=== PATIENT | female | born 1955 | race Caucasian/White ===

== ENCOUNTER 2025-05-31 04:43 | Emergency (ER) | payer MEDICARE, SELFPAY ==
[2025-05-31] VITALS (14 sets, daily range): BP systolic 109–142; BP diastolic 68–93; PULSE 50–62; TEMP 36.8; O2SAT 92–96; BMI 29.3
--- NOTE | 2025-05-31 05:17 | ED.GENADUL1 ---
Documented by User: Eliazar De Souza MD 05/31/25 19:45 HPI HPI - General Adult General Chief complaint: Urogenital-Female Stated complaint: ABDOMINAL PAIN Time Seen by Provider: 05/31/25 05:13 Source: patient Mode of arrival: Wheelchair History of Present Illness HPI narrative: abdominal pain for 3 days. Urinary urgency. Pain worse with cough. increased pain 3:30am. No fever, vomiting or diarrhea. Pain worsens with change in position Related Data Home Medications ?Medication ?Instructions ?Recorded ?Confirmed atorvastatin 20 mg tablet mg 05/31/25 citalopram 10 mg tablet mg 05/31/25 losartan 100 tab 05/31/25 mg-hydrochlorothiazide 25 mg tablet Allergies Allergy/AdvReac Type Severity Reaction Status Date / Time Sulfa (Sulfonamide Allergy Mild Unknown Verified 05/31/25 04:51 Antibiotics) Opioid HPI Opioid Management Most Recent Opioid Data: Last Pain Scale 10 Today, 10:58 Last OCT Pain Assessment Today, 05:29 Review of Systems ROS Status of ROS 10 or more systems reviewed and unremarkable except as noted in history and below PFSH PFSH Social History Little interest or pleasure in doing things: not at all Feeling down, depressed, or hopeless: not at all Exam Constitutional Vital Signs, click to edit/add: Last Vital Signs Temp 98.2 F 05/31/25 04:54 Pulse 50 L 05/31/25 12:49 Resp 16 05/31/25 12:49 BP 109/68 05/31/25 12:49 Pulse Ox 93 L 05/31/25 12:49 O2 Del Method Room Air 05/31/25 12:49 Common normals: average body habitus, oriented x3, no limitations, healthy appearing, alert and well nourished General appearance: in distress HENVT Common normals: normocephalic and head/scalp atraumatic Eye Common normals: EOMs intact bilaterally and conjunctivae normal Respiratory Common normals: normal respiratory effort, no retractions, no use of accessory muscles and clear to auscultation bilaterally Cardio Common normals: regular rate, regular rhythm, S1 normal heart sound and S2 normal heart sound GI Common normals: Normal to inspection, nondistended, normoactive bowel sounds present Other: RLQ very tender Extremity Common normals: normal to inspection and full ROM Neuro Common normals: oriented x3, CN's II-XII intact bilaterally and moves all extremities Psych Appearance: grossly normal Course Vital Signs Vital signs: Vital Signs Temperature 98.2 F 05/31/25 04:54 Pulse Rate 62 05/31/25 04:54 Respiratory Rate 18 05/31/25 04:54 Blood Pressure 140/93 H 05/31/25 04:54 Pulse Oximetry 95 05/31/25 04:54 Oxygen Delivery Method Room Air 05/31/25 04:54 Temperature 98.2 F 05/31/25 04:54 Pulse Rate 50 L 05/31/25 12:49 Respiratory Rate 16 05/31/25 12:49 Blood Pressure 109/68 05/31/25 12:49 Pulse Oximetry 93 L 05/31/25 12:49 Oxygen Delivery Method Room Air 05/31/25 12:49 Medical Decision Making Lab Data Labs: Lab Results 05/31/25 05/31/25 Range/Units 05:06 05:55 WBC 8.7 (4.0-11.0) 10^3/uL RBC 4.41 (4.20-5.40) 10^6/uL Hgb 14.0 (12.0-16.0) g/dL Hct 40.0 (36.0-48.0) % MCV 90.7 (81.0-99.0) fL MCH 31.7 (26.7-34.0) pg MCHC 35.0 (29.9-35.2) g/dL RDW 12.6 (11.0-15.0) % Plt Count 198 (150-450) 10^3/uL MPV 10.1 (9.5-13.5) fL Neut % (Auto) 54.7 (43.0-75.0) % Lymph % (Auto) 33.8 (20.5-60.0) % [place]inger % (Auto) 7.4 (1.7-12.0) % Eos % (Auto) 3.5 (0.9-7.0) % Baso % (Auto) 0.3 (0.2-2.0) % Neut # (Auto) 4.7 (1.4-6.5) 10^3/uL Lymph # (Auto) 2.9 (1.2-3.8) 10^3/uL [place]inger # (Auto) 0.6 (0.3-0.8) 10^3/uL Eos # (Auto) 0.3 (0.0-0.7) 10^3/uL Baso # (Auto) 0.0 (0.0-0.1) 10^3/uL Abs Immat Gran (auto) 0.03 (0.00-0.03) 10^3/uL Imm/Tot Granulo (auto) 0.3 (0.0-0.5) % Sodium 135 L (136-145) mmol/L Potassium 3.6 (3.5-5.1) mmol/L Chloride 99 (98-107) mmol/L Carbon Dioxide 27.7 (21.0-32.0) mmol/L Anion Gap 11.9 BUN 15.0 (7.0-18.0) mg/dL Creatinine 0.87 (0.55-1.02) mg/dL Est GFR ( Amer) >60 (>=60 mL/min/1.73m^2) Est GFR (Non-Af Amer) >60 (>=60 mL/min/1.73m^2) BUN/Creatinine Ratio 17.2 Glucose 116 H (74-106) mg/dL Lactate 1.0 (0.4-2.0) mmol/L Calcium 9.1 (8.5-10.1) mg/dL Total Bilirubin 0.4 (0.2-1.0) mg/dL AST 25 (15-37) U/L ALT 32 (14-59) U/L Alkaline Phosphatase 78 (46-116) U/L Troponin I High Sens 10.1 (4.0-51.3) pg/mL Total Protein 7.3 (6.4-8.2) g/dL Albumin 3.7 (3.4-5.0) g/dL Globulin 3.6 g/dL Albumin/Globulin Ratio 1.0 Lipase 36.0 (16.0-77.0) U/L Urine Color Yellow (YELLOW) Urine Clarity Clear (CLEAR) Urine pH 5.5 (5.0-9.0) Ur Specific [place] >=1.030 A (1.005-1.025) Urine Protein Negative (NEG/TRACE) mg/dL Urine Glucose (UA) Negative (NEGATIVE) mg/dL Urine Ketones 15 A (NEGATIVE) mg/dL Urine Occult Blood Negative (NEGATIVE) Urine Nitrite Negative (NEGATIVE) Urine Bilirubin Negative (NEGATIVE) Urine Urobilinogen 0.2 (0.2-1.0) EU/dL Ur Leukocyte Esterase Negative (NEGATIVE) Urine RBC None seen (0-2) #/HPF Urine WBC 0-2 A (NONE SEEN) #/HPF Ur Squamous Epith Cells Few A (NONE/RARE) #/LPF Urine Crystals Seen A (None Seen) #/HPF Calcium Oxalate Crystal Moderate Urine Bacteria Trace A (NONE SEEN) #/HPF Urine Casts Seen A (NONE SEEN) #/LPF WBC Casts Rare Urine Mucus Small A (NONE SEEN) Ur Culture Indicated? No Discharge Plan Discharge Chief Complaint: Urogenital-Female Clinical Impression: Abdominal wall hematoma Patient Disposition: [facility] Time of Disposition Decision: 10:57 Discharge location: [facility] [address] [facility] Discharge Date/Time: 05/31/25 12:58 Documented by User: Imelda Lakhani MD 05/31/25 11:03 HPI HPI - General Adult General Chief complaint: Urogenital-Female Stated complaint: ABDOMINAL PAIN Time Seen by Provider: 05/31/25 05:13 Related Data Home Medications ?Medication ?Instructions ?Recorded ?Confirmed atorvastatin 20 mg tablet mg 05/31/25 citalopram 10 mg tablet mg 05/31/25 losartan 100 tab 05/31/25 mg-hydrochlorothiazide 25 mg tablet Allergies Allergy/AdvReac Type Severity Reaction Status Date / Time Sulfa (Sulfonamide Allergy Mild Unknown Verified 05/31/25 04:51 Antibiotics) Opioid HPI Opioid Management Most Recent Opioid Data: Last Pain Scale 10 Today, 10:58 Last MAR Pain Assessment Today, 05:29 PFSH PFSH Social History Little interest or pleasure in doing things: not at all Feeling down, depressed, or hopeless: not at all Exam Constitutional Vital Signs, click to edit/add: Last Vital Signs Temp 98.2 F 05/31/25 04:54 Pulse 50 L 05/31/25 12:49 Resp 16 05/31/25 12:49 BP 109/68 05/31/25 12:49 Pulse Ox 93 L 05/31/25 12:49 O2 Del Method Room Air 05/31/25 12:49 Course Vital Signs Vital signs: Vital Signs Temperature 98.2 F 05/31/25 04:54 Pulse Rate 62 05/31/25 04:54 Respiratory Rate 18 05/31/25 04:54 Blood Pressure 140/93 H 05/31/25 04:54 Pulse Oximetry 95 05/31/25 04:54 Oxygen Delivery Method Room Air 05/31/25 04:54 Temperature 98.2 F 05/31/25 04:54 Pulse Rate 50 L 05/31/25 12:49 Respiratory Rate 16 05/31/25 12:49 Blood Pressure 109/68 05/31/25 12:49 Pulse Oximetry 93 L 05/31/25 12:49 Oxygen Delivery Method Room Air 05/31/25 12:49 Medical Decision Making MDM Narrative Medical decision making narrative: The patient care transferred to [place] at 7 AM at the end of the shift awaiting further blood workup as well as a CAT scan The patient has been having for the last 2 days cough that is show of the right lower quadrant pain that got worse at 3 AM today when she stood up and she felt that there is a burst of pain in the right abdomen mostly in the lower, the patient upon arrival was treated initially with fentanyl and then Dilaudid for pain control Upon my assessment the patient was not in any pain but her blood workup showed no acute pathology with a hemoglobin of 14 and the chemistry was within normal the patient had a CAT scan with contrast that showed that the patient have a right inferior rectus sheath hematoma that is acute and it is measuring 6.9 x 5.8 x 10.4 cm with active extravasation. The the patient case discussed with the vascular Dr Iyer from the vascular service, and the plan right now is observation and so the case was discussed with who accepted the patient to the medical service The patient also provided with Robitussin with codeine for cough control in the ER At 10:46 AM the patient complaining of 10 out of 10 pain in her abdomen she mentioned that she feels the pain is going up a little bit more and just above the umbilical area and the patient was provided with Dilaudid for pain control Clinical impression Anterior abdominal wall hematoma active Lab Data Labs: Lab Results 05/31/25 05/31/25 Range/Units 05:06 05:55 WBC 8.7 (4.0-11.0) 10^3/uL RBC 4.41 (4.20-5.40) 10^6/uL Hgb 14.0 (12.0-16.0) g/dL Hct 40.0 (36.0-48.0) % MCV 90.7 (81.0-99.0) fL MCH 31.7 (26.7-34.0) pg MCHC 35.0 (29.9-35.2) g/dL RDW 12.6 (11.0-15.0) % Plt Count 198 (150-450) 10^3/uL MPV 10.1 (9.5-13.5) fL Neut % (Auto) 54.7 (43.0-75.0) % Lymph % (Auto) 33.8 (20.5-60.0) % Grainger % (Auto) 7.4 (1.7-12.0) % Eos % (Auto) 3.5 (0.9-7.0) % Baso % (Auto) 0.3 (0.2-2.0) % Neut # (Auto) 4.7 (1.4-6.5) 10^3/uL Lymph # (Auto) 2.9 (1.2-3.8) 10^3/uL [place]inger # (Auto) 0.6 (0.3-0.8) 10^3/uL Eos # (Auto) 0.3 (0.0-0.7) 10^3/uL Baso # (Auto) 0.0 (0.0-0.1) 10^3/uL Abs Immat Gran (auto) 0.03 (0.00-0.03) 10^3/uL Imm/Tot Granulo (auto) 0.3 (0.0-0.5) % Sodium 135 L (136-145) mmol/L Potassium 3.6 (3.5-5.1) mmol/L Chloride 99 (98-107) mmol/L Carbon Dioxide 27.7 (21.0-32.0) mmol/L Anion Gap 11.9 BUN 15.0 (7.0-18.0) mg/dL Creatinine 0.87 (0.55-1.02) mg/dL Est GFR ( Amer) >60 (>=60 mL/min/1.73m^2) Est GFR (Non-Af Amer) >60 (>=60 mL/min/1.73m^2) BUN/Creatinine Ratio 17.2 Glucose 116 H (74-106) mg/dL Lactate 1.0 (0.4-2.0) mmol/L Calcium 9.1 (8.5-10.1) mg/dL Total Bilirubin 0.4 (0.2-1.0) mg/dL AST 25 (15-37) U/L ALT 32 (14-59) U/L Alkaline Phosphatase 78 (46-116) U/L Troponin I High Sens 10.1 (4.0-51.3) pg/mL Total Protein 7.3 (6.4-8.2) g/dL Albumin 3.7 (3.4-5.0) g/dL Globulin 3.6 g/dL Albumin/Globulin Ratio 1.0 Lipase 36.0 (16.0-77.0) U/L Urine Color Yellow (YELLOW) Urine Clarity Clear (CLEAR) Urine pH 5.5 (5.0-9.0) Ur Specific [place] >=1.030 A (1.005-1.025) Urine Protein Negative (NEG/TRACE) mg/dL Urine Glucose (UA) Negative (NEGATIVE) mg/dL Urine Ketones 15 A (NEGATIVE) mg/dL Urine Occult Blood Negative (NEGATIVE) Urine Nitrite Negative (NEGATIVE) Urine Bilirubin Negative (NEGATIVE) Urine Urobilinogen 0.2 (0.2-1.0) EU/dL Ur Leukocyte Esterase Negative (NEGATIVE) Urine RBC None seen (0-2) #/HPF Urine WBC 0-2 A (NONE SEEN) #/HPF Ur Squamous Epith Cells Few A (NONE/RARE) #/LPF Urine Crystals Seen A (None Seen) #/HPF Calcium Oxalate Crystal Moderate Urine Bacteria Trace A (NONE SEEN) #/HPF Urine Casts Seen A (NONE SEEN) #/LPF WBC Casts Rare Urine Mucus Small A (NONE SEEN) Ur Culture Indicated? No Discharge Plan Discharge Chief Complaint: Urogenital-Female Clinical Impression: Abdominal wall hematoma Patient Disposition: [facility] Time of Disposition Decision: 10:57 Discharge location: [facility] Discharge Date/Time: 05/31/25 12:58
[2025-05-31 05:23] LABS: Hematocrit 40.0 % (36.0-48.0); Hemoglobin 14.0 g/dL (12.0-16.0); Immature Granulocytes Abs Auto 0.03 10^3/uL (0.00-0.03); Immature Granulocytes Pct Auto 0.3 % (0.0-0.5); Lymphocytes Absolute Auto 2.9 10^3/uL (1.2-3.8); Mean Corpuscular HGB Conc 35.0 g/dL (29.9-35.2); Mean Corpuscular Hemoglobin 31.7 pg (26.7-34.0); Mean Corpuscular Volume 90.7 fL (81.0-99.0); Platelet Count 198 10^3/uL (150-450); Red Blood Count 4.41 10^6/uL (4.20-5.40); White Blood Count 8.7 10^3/uL (4.0-11.0)
[2025-05-31] MEDS: FENTANYL CITRATE/PF 100 MCG/2 ML VIAL 50 MCG IV (05:29)
[2025-05-31] MEDS: 0.9 % SODIUM CHLORIDE 1,000 ML 999 ML IV (05:30)
[2025-05-31 05:41] LABS: Lactate/Lactic Acid 1.0 mmol/L (0.4-2.0)
[2025-05-31 05:48] LABS: Alanine Aminotransferase 32 U/L (14-59); Albumin Globulin Ratio 1.0; Albumin Level 3.7 g/dL (3.4-5.0); Alkaline Phosphatase 78 U/L (46-116); Anion Gap 11.9; Aspartate Amino Transferase 25 U/L (15-37); Blood Urea Nitrogen 15.0 mg/dL (7.0-18.0); Calcium 9.1 mg/dL (8.5-10.1); Carbon Dioxide 27.7 mmol/L (21.0-32.0); Chloride 99 mmol/L (98-107); Estimated GFR (African America >60 (>=60 mL/min/1.73m^2); Estimated GFR (Non-African Ame >60 (>=60 mL/min/1.73m^2); Globulin 3.6 g/dL; Glucose 116 mg/dL (74-106); Lipase 36.0 U/L (16.0-77.0); Potassium 3.6 mmol/L (3.5-5.1); Sodium 135 mmol/L (136-145); Total Protein 7.3 g/dL (6.4-8.2)
[2025-05-31 06:13] LABS: Glucose Urine UA NEGATIVE (NEGATIVE)
[2025-05-31 06:24] LABS: Cast Seen? SEEN #/LPF (NONE SEEN); Crystals Seen? Seen #/HPF (None Seen); Urine Culture Indicated NO
[2025-05-31] MEDS: HYDROMORPHONE HCL 1 MG/ML CARTRIDGE IV ×2 (06:34→10:58)
[2025-05-31] MEDS: CODEINE 10 MG/GUAIFENESIN 100 MG 5 ML ORAL SYRINGE PO (09:56)
== END 2025-05-31 12:58 | disposition short-term general hospital (02) ==
PROVIDERS: Emergency Provider Internal Medicine
DX: M79.81 Nontraumatic hematoma of soft tissue (principal)
CPT/HCPCS: 36415; 74177; 80053; 81001; 83605; 83690; 84484; 85025; 96374; 96375; 96376; 99285; J1171; J3010; Q9967